=== PATIENT | male | born 1990 | race Caucasian/White ===

== ENCOUNTER 2022-01-07 12:19 | Emergency (ER) | payer OTHER, SELFPAY ==
--- NOTE | ~2022-01-07 | CT_ITS ---
EXAMINATION: CT CERVICAL SPINE WITHOUT CONTRAST CLINICAL INFORMATION: Trauma, pain, headache. COMPARISON: CT head noncontrast 01/07/2022 TECHNIQUE: Multidetector volumetric CT imaging of the cervical spine is performed without contrast in the axial plane. Additional 2D reformatted coronal and sagittal images are generated on the CT workstation and uploaded to PACS. This CT examination was performed using dose optimization techniques as appropriate, variously including the following: *Automated exposure control *Adjustment of mA and/or kV according to patient size (this includes techniques or standardized protocols for targeted exams where dose is matched to indication/reason for exam; i.e. extremities or head) *Use of iterative reconstruction technique DLP: 684 mGy-cm FINDINGS: There is mild reversal cervical lordosis likely related to muscle spasm. There is no cervical vertebral compression, fracture line, spondylolisthesis, or prevertebral soft tissue swelling. The odontoid appears intact. There is no perched facet. There are degenerative changes mid cervical spine with anterior vertebral spurring C4-C6-C7. No significant disc narrowing. No apical pneumothorax or subcutaneous emphysema. CT/CT cervical spine wo con IMPRESSION: 1. No acute bony abnormality or prevertebral soft tissue swelling. 2. Mild reversal cervical lordosis which may be related to muscle spasm.
--- NOTE | ~2022-01-07 | CT_ITS ---
EXAMINATION: CT HEAD WITHOUT CONTRAST CLINICAL INFORMATION: Trauma, headache COMPARISON: None TECHNIQUE: Contiguous axial imaging was performed from the skull base to vertex without intravenous administration of contrast. Additional 2-D coronal and sagittal reformatted images are generated on the CT workstation and uploaded to PACS. This CT examination was performed using dose optimization techniques as appropriate, variously including the following: *Automated exposure control *Adjustment of mA and/or kV according to patient size (this includes techniques or standardized protocols for targeted exams where dose is matched to indication/reason for exam; i.e. extremities or head) *Use of iterative reconstruction technique DLP: 870 mGy-cm FINDINGS: There is no intracranial hemorrhage, hematoma, or extra-axial fluid collection. The ventricles are normal in size. There is no hydrocephalus, edema, or mass effect. The cartagena-white matter differentiation appears well preserved . There is no visible acute territorial infarct or mass lesion. The calvarium appears intact. There is no pneumocephalus or orbital emphysema. No air-fluid levels in the visualized sinuses and middle ears or mastoids. There is variable lobulated thickening or polyps bilateral lower maxillary sinus. CT/CT head/brain wo con IMPRESSION: No acute intracranial abnormality.
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
[2022-01-07 12:25] VITALS: BP 139/67; PULSE 82; RESP 18; TEMP 36.7; O2SAT 97; BMI 42.3
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
[2022-01-07 14:46] VITALS: BP 122/58; PULSE 68; RESP 18; TEMP 36.4; O2SAT 97
[2022-01-07] MEDS: Cyclobenzaprine HCl 5 MG TABLET PO (15:43)
[2022-01-07] MEDS: Ketorolac Tromethamine 15 MG/ML VIAL IM (15:43)
== END 2022-01-07 15:48 | disposition home or self-care (01) ==
PROVIDERS: Emergency Provider Emergency Medicine
DX: S49.92XA Unspecified injury of left shoulder and upper arm, initial encounter (principal); S13.4XXA Sprain of ligaments of cervical spine, initial encounter; R51.9 Headache, unspecified; M54.2 Cervicalgia; V43.52XA Car driver injured in collision with other type car in traffic accident, initial encounter; Y93.9 Activity, unspecified; Y92.410 Unspecified street and highway as the place of occurrence of the external cause; Y99.9 Unspecified external cause status; Z79.899 Other long term (current) drug therapy
CPT/HCPCS: 70450; 72125; 73030; 96372; 99283; 99284; J1885